=== PATIENT | male | born 1965 | race Caucasian/White ===

== ENCOUNTER 2017-10-14 09:42 | Emergency (ER) | payer OTHER ==
[~2017-10-14] VITALS: Ht 165.1 cm; Wt 72.6 kg
[2017-10-14 11:20] LABS: Source, Urine Clean Catch
[2017-10-14 11:24] LABS: Bilirubin, Urine Neg (Neg); Blood, Urine 2+ (Neg); Glucose Qualitative, Urine Neg (Neg); Ketones, Urine 2+ (Neg); Leukocyte Esterase, Urine 1+ (Neg); Nitrite, Urine Neg (Neg); Protein, Urine 2+ (Neg); Urobilinogen, Urine 1+ (Normal)
[2017-10-14 11:33] LABS: Appearance, Urine Clear (Clear); Color, Urine Amber (P-Yellow)
[2017-10-14 11:35] LABS: Mucus Light (0-Heavy)
[2017-10-14 11:36] LABS: Bacteria Rare /hpf; Red Blood Cells, Urine 0-2 /hpf (0-2); Squamous Epithelial Cells Few /hpf (Few)
[2017-10-14] MEDS ORDERED: LEVFLO500 PO (12:38)
== END 2017-10-14 12:45 | disposition home or self-care (01) ==
LOC: ER 09:42
PROVIDERS: Internal Medicine
DX: N45.1 Epididymitis (principal); Z79.2 Long term (current) use of antibiotics; K21.9 Gastro-esophageal reflux disease without esophagitis
CPT/HCPCS: 76870; 81001; 87086; 99284

== ENCOUNTER 2018-04-13 07:20 | Emergency (ER) | payer OTHER ==
[~2018-04-13] VITALS: Ht 165.1 cm; Wt 71.7 kg
[~2018-04-13 07:20] MED LIST: LEVFLO500 PO
[2018-04-13] MEDS ORDERED: Prilosec Otc20 MG PO (07:48)
[2018-04-13] MEDS ORDERED: ADVIL COLD-SIN1 EACH PO (07:48)
[2018-04-13] MEDS ORDERED: ZYRTEC10 M1 PO (07:48)
[2018-04-13 09:23] LABS: BASOPHILS ABSOLUTE AUTO 0.04 K/mm3 (0.00-0.23); BASOPHILS PERCENT AUTO 0 % (0-2); EOSINOPHILS ABSOLUTE AUTO 0.29 K/mm3 (0.00-0.68); EOSINOPHILS PERCENT AUTO 3 % (0-6); Hematocrit 44.2 % (37.0-53.0); IMMATURE GRAN ABSOLUTE AUTO 0.04 K/mm3 (0.00-0.10); IMMATURE GRAN PERCENT AUTO 0 % (0-1); LYMPHOCYTES ABSOLUTE AUTO 1.46 K/mm3 (0.84-5.20); LYMPHOCYTES PERCENT AUTO 14 % (21-46); MONOCYTES ABSOLUTE AUTO 0.67 K/mm3 (0.16-1.47); MONOCYTES PERCENT AUTO 7 % (4-13); Mean Corpuscular HGB 29.1 pg (26.0-34.0); Mean Corpuscular HGB Conc 33.9 g/dL (31.5-36.5); Mean Corpuscular Volume 86 fL (80-100); Mean Platelet Volume 9.3 fL (9.1-12.4); NEUTROPHILS ABSOLUTE AUTO 7.68 K/mm3 (1.96-9.15); NEUTROPHILS PERCENT AUTO 76 % (41-73); Platelet Count 210 K/mm3 (150-400); RDW Coefficient Variation 12.5 % (11.7-14.2); RDW Standard Deviation 39.3 fL (35.1-46.3); Red Blood Cell Count 5.16 M/mm3 (4.30-5.90); White Blood Cell Count 10.18 K/mm3 (4.00-11.30)
[2018-04-13 09:38] LABS: Alanine Aminotransfer (ALT/SGP 26 U/L (12-78); Albumin, Blood 3.8 g/dL (3.4-5.0); Alk Phos 88 U/L (50-136); Anion Gap 6 mmol/L (6-16); Aspartate Aminotrans (AST/SGOT 29 U/L (12-37); Bilirubin, Total 0.3 mg/dL (0.1-1.0); Blood Urea Nitrogen 17 mg/dL (8-24); Bun/Creatinine Ratio 16.5 (12.0-20.0); CO2, Blood 30 mmol/L (21-32); Chloride, Blood 106 mmol/L (98-108); Creatinine, Blood 1.03 mg/dL (0.60-1.20); Globulin, Blood 3.9 g/dL (2.2-4.0); Glomerular Filtration Rate >60 (60-); Glucose, Blood 100 mg/dL (70-99); Sodium, Blood 142 mmol/L (136-145); Total Protein, Blood 7.7 g/dL (6.4-8.2)
[2018-04-13] MEDS ORDERED: Cipro500 MG PO (12:58)
[2018-04-13] MEDS ORDERED: Cleocin HCl300 MG PO (12:58)
== END 2018-04-13 13:43 | disposition home or self-care (01) ==
LOC: ER 07:20
PROVIDERS: Nurse Practitioner Family
DX: N49.2 Inflammatory disorders of scrotum (principal); K21.9 Gastro-esophageal reflux disease without esophagitis; Z79.899 Other long term (current) drug therapy; Z86.14 Personal history of Methicillin resistant Staphylococcus aureus infection
CPT/HCPCS: 36415; 72193; 76870; 80053; 85025; 96365; 99284-25; J3370; Q9967

== ENCOUNTER 2018-05-03 00:19 | Day surgery (SDC) | payer OTHER ==
[~2018-05-03 00:19] MED LIST changes: +ADVIL COLD-SIN1 EACH PO; +Cipro500 MG PO; +Cleocin HCl300 MG PO; +Prilosec Otc20 MG PO; +ZYRTEC10 M1 PO
[2018-05-03] MEDS ORDERED: Bactrim Ds Tab1 EACH PO (08:12)
== END 2018-05-03 08:17 | disposition home or self-care (01) ==
LOC: ATC 00:19
DX: Z48.01 Encounter for change or removal of surgical wound dressing (principal); N49.2 Inflammatory disorders of scrotum
CPT/HCPCS: 99214

== ENCOUNTER 2018-05-05 00:11 | Day surgery (SDC) | payer OTHER ==
[~2018-05-05 00:11] MED LIST changes: +Bactrim Ds Tab1 EACH PO
== END 2018-05-05 14:04 | disposition home or self-care (01) ==
LOC: ATC 00:11
DX: N49.2 Inflammatory disorders of scrotum (principal); Z79.899 Other long term (current) drug therapy
CPT/HCPCS: 99212

== ENCOUNTER 2019-01-21 20:23 | Emergency (ER) | payer OTHER ==
[~2019-01-21] VITALS: Ht 165.1 cm; Wt 76.2 kg
[2019-01-21] MEDS ORDERED: MELO7.5 PO (20:49)
[2019-01-21] MEDS ORDERED: CALCIUM 600+D1 EACH (20:50)
== END 2019-01-21 21:30 | disposition home or self-care (01) ==
LOC: ER 20:23
DX: Z48.817 Encounter for surgical aftercare following surgery on the skin and subcutaneous tissue (principal); N49.2 Inflammatory disorders of scrotum; K21.9 Gastro-esophageal reflux disease without esophagitis; M54.9 Dorsalgia, unspecified
CPT/HCPCS: 99282

== ENCOUNTER 2019-01-27 00:34 | Day surgery (SDC) | payer OTHER ==
[~2019-01-27 00:34] MED LIST changes: +CALCIUM 600+D1 EACH; +MELO7.5 PO
== END 2019-01-27 22:43 | disposition home or self-care (01) ==
LOC: WOUND 00:34
DX: S31.30XA Unspecified open wound of scrotum and testes, initial encounter (principal); N49.2 Inflammatory disorders of scrotum; M19.90 Unspecified osteoarthritis, unspecified site
CPT/HCPCS: G0463

== ENCOUNTER 2019-02-09 02:27 | Emergency (ER) | payer OTHER ==
[~2019-02-09] VITALS: Ht 165.1 cm; Wt 81.7 kg
[~2019-02-09 02:27] MED LIST changes: -CALCIUM 600+D1 EACH; +CALCIUM 600+D1 EACH PO
[2019-02-28] MEDS ORDERED: VITAMIN D32000 UNIT PO (12:08)
[2019-02-28] MEDS ORDERED: TIZANIDINE HCL2 MG PO (12:08)
== END 2019-02-09 07:29 | disposition home or self-care (01) ==
LOC: ER 02:27
DX: T18.128A Food in esophagus causing other injury, initial encounter (principal); Z88.8 Allergy status to other drugs, medicaments and biological substances; Z79.899 Other long term (current) drug therapy; K21.9 Gastro-esophageal reflux disease without esophagitis
CPT/HCPCS: 96374; 96375; 99283-25; J1610; J2405

== ENCOUNTER 2019-03-01 08:16 | Day surgery (SDC) | payer OTHER ==
[~2019-03-01] VITALS: Ht 165.1 cm; Wt 82.1 kg
[~2019-03-01 08:16] MED LIST changes: +TIZANIDINE HCL2 MG PO; +VITAMIN D32000 UNIT PO
== END 2019-03-01 10:40 | disposition home or self-care (01) ==
LOC: ORSCSDS 08:16
PROVIDERS: Internal Medicine Gastroenterology
PROC: 0DJD8ZZ Inspection of Lower Intestinal Tract, Via Natural or Artificial Opening Endoscopic (ICD-10-PCS; principal; 2019-03-01 09:45)
DX: R19.5 Other fecal abnormalities (principal); K64.8 Other hemorrhoids; K21.9 Gastro-esophageal reflux disease without esophagitis; Z79.899 Other long term (current) drug therapy
CPT/HCPCS: J2704; J7120

== ENCOUNTER → 2019-03-02 | Outpatient (CLI) | payer OTHER | END | disposition home or self-care (01) | LOC: LAB 10:23 → LAB SHORT 10:23 | DX: L02.91 Cutaneous abscess, unspecified (principal) | CPT/HCPCS: 87070; 87075; 87077; 87147; 87186; 87205 ==

== ENCOUNTER → 2019-04-05 | Outpatient (CLI) | payer OTHER | END | disposition home or self-care (01) | LOC: LAB SHORT 08:53 → LAB 08:53 | DX: L03.115 Cellulitis of right lower limb (principal) | CPT/HCPCS: 87070; 87075; 87077; 87147; 87186; 87205 ==

== ENCOUNTER 2020-09-16 08:42 | Emergency (ER) | payer OTHER ==
[~2020-09-16] VITALS: Ht 165.1 cm; Wt 82.5 kg
== END 2020-09-16 09:19 | disposition home or self-care (01) ==
LOC: ER 08:42
DX: S61.211D Laceration without foreign body of left index finger without damage to nail, subsequent encounter (principal); K21.9 Gastro-esophageal reflux disease without esophagitis; Z91.09 Other allergy status, other than to drugs and biological substances; Z79.899 Other long term (current) drug therapy; W27.0XXD Contact with workbench tool, subsequent encounter

== ENCOUNTER → 2022-01-21 | Outpatient (CLI) | payer OTHER | END | disposition home or self-care (01) | LOC: LAB 11:15 → LAB SHORT 11:15 → PLD 11:15 | DX: D04.39 Carcinoma in situ of skin of other parts of face (principal) | CPT/HCPCS: 88305 ==

== ENCOUNTER → 2022-10-27 | Outpatient (CLI) | payer OTHER | LOC: LAB 08:30 → LAB SHORT 08:30 | DX: L03.314 Cellulitis of groin (principal) | CPT/HCPCS: 87070; 87205 ==

== ENCOUNTER → 2022-12-24 | Outpatient (CLI) | payer OTHER | END | disposition home or self-care (01) | LOC: LAB 10:53 → LAB SHORT 10:53 | DX: L98.9 Disorder of the skin and subcutaneous tissue, unspecified (principal) | CPT/HCPCS: 87070; 87077; 87147; 87186; 87205 ==

== ENCOUNTER 2023-05-02 04:26 | Emergency (ER) | payer OTHER ==
[~2023-05-02] VITALS: Ht 165.1 cm; Wt 86.2 kg
[2023-05-02 04:46] VITALS: BP 140/94
[2023-05-02] MEDS ORDERED: MONDOXYNE NL100 MG PO (04:50)
== END 2023-05-02 06:01 | disposition home or self-care (01) ==
LOC: ER 04:26
DX: S61.211A Laceration without foreign body of left index finger without damage to nail, initial encounter (principal); Z23 Encounter for immunization; Z88.2 Allergy status to sulfonamides; Z91.048 Other nonmedicinal substance allergy status; W26.0XXA Contact with knife, initial encounter
CPT/HCPCS: 90471; 90714; 90715; 99283-25